=== PATIENT | female | born 1960 | race Caucasian/White ===

== ENCOUNTER 2019-06-16 06:24 | Day surgery (SDC) | payer OTHER ==
[2019-06-15 12:44] VITALS: BMI 21.6
[2019-06-16] MEDS ORDERED: MIDAZOLAM HCL 2 MG/2 ML SINGLE DOSE VIAL ONE (07:58)
[2019-06-16] MEDS ORDERED: PROPOFOL 20 ML ONE ×2 (07:58)
[2019-06-16] MEDS ORDERED: LIDOCAINE HCL 2% (20ML MULTI-DOSE VIAL) ONE (08:05)
[2019-06-16] MEDS ORDERED: ceFAZolin 2 GRAM PREMIX BAG IVPB ONE (08:32)
[2019-06-16] MEDS ORDERED: ONDANSETRON 4 MG/2 ML VIAL IVPUSH PRN (08:38)
[2019-06-16] MEDS ORDERED: oxyCODONE HCL 5 MG TABLET PO PRN (08:38)
[2019-06-16] MEDS ORDERED: LACTATED RINGERS SOLUTION 1,000 ML IV SCH (08:45)
[2019-06-16] MEDS ORDERED: BUPIVACAINE HCL/PF 0.5% (5 MG/ML) 30 ML VIAL IJ ONE (08:46)
[2019-06-16] MEDS ORDERED: LIDOCAINE HCL 2% (50ML VIAL) NR ONE (08:46)
[2019-06-16] MEDS ORDERED: DEXAMETHASONE SOD PHOSPHATE 4 MG/1 ML VIAL ONE ×2 (09:25→09:26)
[2019-06-16] MEDS ORDERED: DEXAMETHASONE SOD PHOSPHATE 4 MG/1 ML VIAL IVPUSH ONE ×2 (09:32→09:34)
--- NOTE | 2019-06-16 09:51 | OP ---
Operative Note - Note: Operative Date: 06/16/19 Pre-Operative Diagnosis: Painful Bunion with arthritis left foot Operation: Matthew Bunionectomy with first metatarsal osteotomy and .062 K wire fixation left foot Findings: Bursal cyst with intra articular osteophyte Implants: .062 K wire Surgeon: Anastasia Starr Hat Cutter: Nabeel Child Anesthesia: MAC Specimens Removed: Bone and soft tissue Estimated Blood Loss (mls): 1 Operative Report Dictated: No
[2019-06-16 12:59] VITALS: BP 110/80; PULSE 74; TEMP 99
--- NOTE | 2019-06-19 14:18 | PATH ---
Surgical Pathology Report Patient Name: CAR JACOB [facility]. Rec. #: [id number] /Age/Gender: 1960 (Age: 59) / F Account: [id number] Location: [facility] SURGICAL Taken: 06/16/2019 Received: 06/16/2019 Reported: 06/19/2019 Physicians: Anastasia Starr DPM Specimen(s) Received A: BONE AND CAPSULE LEFT FIRST DIGIT B: BURSAL CYST Clinical History Hallux valgus left foot first toe Final Diagnosis A. BONE AND CAPSULE, FIRST DIGIT, LEFT, BUNIONECTOMY: BONE AND CARTILAGE WITH DEGENERATIVE CHANGES. BENIGN SYNOVIUM AND DENSE FIBROCONNECTIVE TISSUE. B. BURSAL CYST, EXCISION: BENIGN DENSE FIBROCONNECTIVE TISSUE WITH REACTIVE CHANGES AND FOCAL SYNOVIAL LINING COMPATIBLE WITH BURSAL CYST. Electronically Signed Mary Alford M.D. Gross Description A. Received in formalin labeled "bone and capsule left first digit," are 2 kramer-yellow, irregular portions of bone measuring 1.2 x 0.7 x 0.2 cm and 1.8 x 1.0 x 0.2 cm. Also received within the same container is a 1.8 x 1.0 x 0.2 cm kramer portion of soft tissue. The specimens are sectioned and entirely submitted in one cassette, following decalcification. B. Received in formalin labeled "bursal cyst," is a 1.7 x 0.7 x 0.4 cm kramer-yellow portion of soft tissue. The specimen is bisected and entirely submitted in one cassette. 06/16/2019 [facility]06/16/2019
== END 2019-06-16 12:00 | disposition home or self-care (01) ==
LOC: JASU-SURG 06:24
PROVIDERS: ATTEND Podiatrist Foot Surgery
PROC: 0QBR0ZZ Excision of Left Toe Phalanx, Open Approach (ICD-10-PCS; principal; 2019-06-16 08:30)
DX: M20.12 Hallux valgus (acquired), left foot (principal)
CPT/HCPCS: 88304-TC; 88311-TC

== ENCOUNTER 2019-11-24 07:44 | Inpatient (IN) | payer OTHER ==
[2019-11-20 10:24] VITALS: BMI 21.6
--- NOTE | 2019-11-24 08:01 | HP ---
Satellite [facility] - Chief Complaint Chief Complaint: right hip pain - Past Medical History Allergies/Adverse Reactions: Allergies Allergy/AdvReac Type Severity Reaction Status Date / Time No Known Drug Allergies Allergy Verified 06/15/19 12:38 seasonal Allergy Uncoded 06/15/19 12:38 - Current Medications Current Medications: Home Medications Medication Instructions Recorded Cetirizine HCl [Zyrtec -] 10 mg PO DAILY 10/23/15 Fluticasone Prop 0.05% Nasal 1 - 2 spray NS DAILY 10/23/15 [Flonase -] Ibuprofen [Advil -] 200 mg PO PRN PRN 06/15/19 Granville-3 Fatty Acids [Gr[place]ville-3] 1,000 mg PO DAILY 06/15/19 Satellite Physical Exam - Physical Examination General Appearance: Well Nourished, Well Developed, Alert & Oriented x3 ENT: Clear Lung: Normal air movement Extremities: Other (right hip- + ttp, decr rom, nvi, xrays show grade 4 hip djd) Neurological: Intact, Alert, Oriented Satellite Impression/Plan - Impression/Plan Impression: right hip djd Operative Procedure: right maxi thr Date to be Performed: 11/24/19
[2019-11-24] MEDS ORDERED: CEFAZOLIN 2 GM in DEXTROSE 5%-WATER - 50 ML IVPB ONE (08:05)
[2019-11-24] MEDS ORDERED: CELECOXIB 200 MG CAPSULE PO ONE (08:05)
[2019-11-24] MEDS ORDERED: ROPIVACAINE HCL 0.5% 30ML VIAL ONE (08:13)
[2019-11-24] MEDS ORDERED: MIDAZOLAM HCL 2 MG/2 ML SINGLE DOSE VIAL ONE (08:13)
[2019-11-24] MEDS ORDERED: oxyCODONE HCL 5 MG TABLET PO PRN (08:15)
[2019-11-24] MEDS ORDERED: ONDANSETRON 4 MG/2 ML VIAL IVPUSH PRN ×2 (08:15→09:53)
[2019-11-24] MEDS ORDERED: ceFAZolin SODIUM 1 GM VIAL ONE ×2 (08:26→09:04)
[2019-11-24] MEDS ORDERED: ONDANSETRON 4 MG/2 ML VIAL ONE (08:26)
[2019-11-24] MEDS ORDERED: PROPOFOL 20 ML ONE (08:26)
[2019-11-24] MEDS ORDERED: TRANEXAMIC ACID 1000 MG/10 ML VIAL ONE (08:26)
[2019-11-24] MEDS ORDERED: DEXAMETHASONE SOD PHOSPHATE 4 MG/1 ML VIAL ONE (08:26)
[2019-11-24] MEDS ORDERED: VANCOMYCIN 1,000 MG VIAL (RESTRICTED TO ID ONLY) ONE (09:04)
[2019-11-24] MEDS ORDERED: MAG HYDROX/AL HYDROX/SIMETH 30 ML UNIT-DOSE CUP PO PRN (09:53)
[2019-11-24] MEDS ORDERED: MAGNESIUM HYDROX 2400MG/30ML ORAL SUSPENSION 30 ML CUP PO PRN (09:53)
[2019-11-24] MEDS ORDERED: TRANEXAMIC ACID 1000 MG/10 ML VIAL IVPUSH ONE (10:00)
[2019-11-24] MEDS ORDERED: LACTATED RINGERS SOLUTION 1,000 ML IV SCH (10:00)
[2019-11-24] MEDS ORDERED: ceFAZolin SODIUM 1 GM VIAL IVPB ONE (10:06)
[2019-11-24] MEDS ORDERED: VANCOMYCIN 1,000 MG VIAL (RESTRICTED TO ID ONLY) IVPB ONE (10:59)
--- NOTE | 2019-11-24 11:01 | OP ---
Operative Note - Note: Operative Date: 11/24/19 (lacy) Pre-Operative Diagnosis: right hip djd Operation: right maxi thr Post-Operative Diagnosis: Same as Pre-op Surgeon: Demetris Kitchen Hvac Manager: Ramiro Terry Anesthesiologist/BURR SANDER: Octavio Chino Anesthesia: Spinal, Local Specimens Removed: femoral head Estimated Blood Loss (mls): 100
[2019-11-24] MEDS ORDERED: ACETAMINOPHEN 325 MG TABLET (FP) ONE (12:19)
[2019-11-24] MEDS: LACTATED RINGERS SOLUTION 1,000 ML IV SCH (14:37)
[2019-11-24] MEDS: oxyCODONE HCL 10 MG SUSTAINED ACTING TABLET PO SCH ×2 (14:38→21:49)
[2019-11-24] MEDS: PANTOPRAZOLE 40 MG TABLET PO SCH (14:39)
[2019-11-24] MEDS: MULTIVITAMINS (DAILY MVI) TABLET (FP) PO SCH (14:39)
[2019-11-24] MEDS: SENNOSIDES/DOCUSATE COMBO (SENNA PLUS) TABLET (UD) PO SCH ×2 (14:39→21:50)
[2019-11-24] MEDS: ACETAMINOPHEN 325 MG TABLET (FP) PO SCH ×2 (14:41→18:02)
[2019-11-24] MEDS: CEFAZOLIN 2 GM/D5W 2 GM/50 ML ML IVPB SCH (18:00)
[2019-11-24] MEDS: oxyCODONE HCL 5 MG TABLET PO PRN (18:01)
[2019-11-25] MEDS: CEFAZOLIN 2 GM/D5W 2 GM/50 ML ML IVPB SCH (01:00)
[2019-11-25] MEDS: oxyCODONE HCL 5 MG TABLET PO PRN (06:29)
[2019-11-25] MEDS: ACETAMINOPHEN 325 MG TABLET (FP) PO SCH ×5 (06:29→23:56)
[2019-11-25 08:32] LABS: HEMATOCRIT 32.6 % (32.4-45.2); HEMOGLOBIN 11.4 GM/dl (10.7-15.3); MCH 32.3 pg (25.7-33.7); MEAN CELL VOLUME 92.1 fl (80-96); MEAN PLT VOLUME 10.3 fl (7.5-11.1); PLATELET COUNT 126 K/MM3 (134-434); RBC 3.54 M/mm3 (3.60-5.2); RDW 12.1 % (11.6-15.6); WHITE BLOOD COUNT 9.4 K/mm3 (4.0-10.8)
[2019-11-25] MEDS: SENNOSIDES/DOCUSATE COMBO (SENNA PLUS) TABLET (UD) PO SCH ×2 (09:06→21:16)
[2019-11-25] MEDS: PANTOPRAZOLE 40 MG TABLET PO SCH (09:07)
[2019-11-25] MEDS: ASPIRIN 325 MG TABLET PO SCH (09:07)
[2019-11-25] MEDS: MULTIVITAMINS (DAILY MVI) TABLET (FP) PO SCH (09:07)
[2019-11-25] MEDS: oxyCODONE HCL 10 MG SUSTAINED ACTING TABLET PO SCH ×2 (09:07→21:16)
[2019-11-25] MEDS ORDERED: PT OWN MED DRAWER 7, Y5N ONE ×2 (11:01→11:20)
--- NOTE | 2019-11-25 12:01 | SPEC ---
DATE OF OPERATION: 11/24/2019 PREOPERATIVE DIAGNOSIS: Degenerative joint disease right hip. POSTOPERATIVE DIAGNOSIS: Degenerative joint disease right hip. PROCEDURE PERFORMED: Right total hip replacement with robotic-assisted navigation (MAKOplasty). SURGICAL ATTENDING: Demetris Kitchen MD [employer]ERGY SALES BROKER: EDI Verma ANESTHESIA: Regional and spinal. CLOSURE: A Trident II Press-Fit 54-mm acetabulum; a number 5 Press-Fit Accolade II femoral stem; a +5, 36-mm ceramic femoral head. Number 1 Vicryl for fascia, 0 and 2-0 subcutaneous, 3-0 V-Loc for skin, 4-0 undyed Vicryl for pin sites. ESTIMATED BLOOD LOSS: Negligible. COMPLICATIONS: None. CONDITION: To the recovery room in stable condition. DESCRIPTION OF PROCEDURE: The patient was taken to the operating room on November 24, 2019. General and regional anesthesia was administered by the anesthesiologist. IV Kefzol and TXA were administered prophylactically prior to the case. The patient was placed in the lateral decubitus position will all prominences well-padded. The right hip area was prepped and draped in the usual sterile fashion. Using 3 small stab incisions over the iliac crest, 3 threaded pins were drilled in power fashion through the 2 tables of the crest. These pins were fastened and the navigation array for the Thor navigation system. Next, a 12 to 15-cm curved longitudinal incision over the posterolateral aspect of the greater trochanter was incised. Hemostasis was achieved with Bovie cautery. Sharp dissection was carried down to level of the fascia. The fascia was opened the entire length of the incision, spreading the fibers of the gluteus jean in the direction of origin. A Charnley retractor was placed in this layer. Care was taken not to impale the sciatic nerve. The short external rotators were detached off the insertion of the greater trochanter and peeled off the capsule. A posterior capsulotomy was then performed. A check point was malleted into the greater trochanter and a point on the inferior pole of the patella was obtained as well. These 2 points were used to assess the preoperative offset and limb lengths of the hip. The hip was then dislocated. The femoral neck was then osteotomized down to the appropriate level as directed by the navigation device. Anterior and posterior retractors were placed, exposing the acetabulum. A circumferential labral excision was performed. A check point was malleted into the acetabulum as well. Multiple sites inside the acetabulum and around the rim were utilized to register the acetabulum with the navigation device. An excellent registration of less than 0.5 mm was obtained. The hip was then reamed with the appropriate reamer down to the appropriate depth, with the appropriate orientation and version as assessed on our preoperative plan for this patient. The reamer was removed and the acetabulum was inspected to have good bleeding surfaces throughout. The real acetabular cup was then malleted down into place, with the holes in the appropriate position, until an excellent fixation was obtained. No screws were necessary. The navigation device ensured appropriate orientation and version, with the depth as predetermined. The appropriate liner was then clipped into place. Attention was directed to the femur. The proximal femur was prepared by use a box chisel, a canal finder and serial broaches until the broach achieved excellent rigidity in the proximal femur with the appropriate version being applied. A calcar planer was used to smooth off the calcar flush with the trial components. A trial reduction with the appropriate head was done, and the hip was reduced. The hip was taken through a range of motion from full extension with external rotation to marked flexion, and was stable at 90 degrees of flexion. It was stable to marked abduction and internal rotation, with a positive hang test and negative telescoping. Limb lengths were ascertained visually as well as with the navigation device to be within the targeted range for this patient. The trial component was removed. The real component was then malleted into place. The head was cold welded to the trunnion, and the hip was reduced. Range of motion, stability and limb lengths were as described in the trial component. Then the hip was pulse antibiotic irrigated. Vancomycin powder was placed in the hip joint. The capsule was closed. The fascia was then closed as well using number 1 Vicryl interrupted suture, 0 and 2-0 subcutaneous, and 3-0 V-Loc for the skin. 4-0 undyed Vicryl was used to close the pin sites after the pins were removed. All check points were also removed. Sterile Aquacel dressing was applied. The patient was awakened from anesthesia and transferred into the supine position. Bilateral SCDs and an abduction pillow were placed. X-rays revealed excellent position of the components. The patient was transferred to the recovery room in stable condition, with no complications. Estimated blood loss was less than 100 mL. Yohan BOSTON/[id number]
[2019-11-25] MEDS: LACTATED RINGERS SOLUTION 1,000 ML IV SCH (18:11)
--- NOTE | 2019-11-25 22:43 | PN ---
Progress Note (short form) - Note Progress Note: AVSS comfortable Bandages dry and intact calf soft and NT NVI Imp: doing well Plan: PT and Dc in AM
[2019-11-26] MEDS: ACETAMINOPHEN 325 MG TABLET (FP) PO SCH (06:03)
[2019-11-26] MEDS: oxyCODONE HCL 5 MG TABLET PO PRN (06:04)
[2019-11-26] MEDS: LACTATED RINGERS SOLUTION 1,000 ML IV SCH (09:05)
[2019-11-26] MEDS: SENNOSIDES/DOCUSATE COMBO (SENNA PLUS) TABLET (UD) PO SCH (09:06)
[2019-11-26] MEDS: ASPIRIN 325 MG TABLET PO SCH (09:06)
[2019-11-26] MEDS: oxyCODONE HCL 10 MG SUSTAINED ACTING TABLET PO SCH (09:06)
[2019-11-26] MEDS: PANTOPRAZOLE 40 MG TABLET PO SCH (09:07)
[2019-11-26] MEDS: MULTIVITAMINS (DAILY MVI) TABLET (FP) PO SCH (09:07)
[2019-11-26 09:22] LABS: HEMOGLOBIN 11.6 GM/dl (10.7-15.3); MCH 32.7 pg (25.7-33.7); MCHC 35.2 g/dl (32.0-36.0); MEAN CELL VOLUME 92.9 fl (80-96); MEAN PLT VOLUME 10.5 fl (7.5-11.1); PLATELET COUNT 135 K/MM3 (134-434); RBC 3.55 M/mm3 (3.60-5.2); RDW 12.3 % (11.6-15.6); WHITE BLOOD COUNT 8.8 K/mm3 (4.0-10.8)
[2019-11-26] MEDS ORDERED: PT OWN MED DRAWER 7, Y5N ONE (09:32)
[2019-11-26 11:16] VITALS: BP 112/64; PULSE 80; TEMP 99.1
--- NOTE | 2019-11-29 12:57 | PATH ---
Surgical Pathology Report Patient Name: CAR JACOB Med. Rec. #: [id number] /Age/Gender: 1960 (Age: 59) / F Account: [id number] Location: [facility] MED-SURG Taken: 11/24/2019 Received: 11/24/2019 Reported: 11/29/2019 Physicians: Demetris Kitchen M.D. Specimen(s) Received RIGHT FEMORAL HEAD Clinical History Osteoarthritis Final Diagnosis FEMORAL HEAD, RIGHT, TOTAL HIP REPLACEMENT: DEGENERATIVE JOINT DISEASE. Electronically Signed Melvina Menjivar M.D. Gross Description Received in formalin, labeled "right femoral head," is a 4.4 x 4.4 x 3.7 cm. femoral head with a 1.8 cm in length portion of femoral neck attached. The margin of resection is smooth. There is a 2.9 cm greatest dimension area of eburnation present. The remaining articular surface is kramer-yellow and diffusely granular. The underlying trabecular bone is yellow and hard. A exhibit display representative section is submitted in one cassette, following decalcification. 11/27/2019 [facility]11/27/2019
== END 2019-11-26 11:18 | disposition home health service (06) | DRG 470 ==
LOC: FM/S 07:44
PROVIDERS: ADMIT Orthopaedic Surgery; ATTEND Orthopaedic Surgery
PROC: 8E0W0CZ Robotic Assisted Procedure of Trunk Region, Open Approach (ICD-10-PCS; 2019-11-24)
PROC: 0SR903A Replacement of Right Hip Joint with Ceramic Synthetic Substitute, Uncemented, Open Approach (ICD-10-PCS; principal; 2019-11-24 09:59)
DX: M16.11 Unilateral primary osteoarthritis, right hip (principal)
CPT/HCPCS: 36415; 73502-TC-RT-FY; 85027; 88305-TC; 88311-TC; 94760; 97010-GP; 97116-GP; 97162-GP